=== PATIENT | male | born 1965 | race Hispanic/Latino ===

== ENCOUNTER 2022-02-04 06:56 | Emergency (ER) | payer SELFPAY ==
--- NOTE | 2022-02-04 07:25 | Emergency Department Report ---
ED Male HPI - General Stated complaint: URINARY CATHETER PROBLEMS Time Seen by Provider: 02/04/22 07:18 Source: patient Mode of arrival: Ambulatory Limitations: No Limitations - History of Present Illness Initial comments: 56-year-old male with a past medical history of diabetes (not currently on medication) and chronic urine retention and Pitt catheter dependence presents to the hospital complaining of no drainage from Pitt catheter x24 hours. Patient has had a catheter placed x1 year since he had a ruptured hernia and "blood infection that affected his kidneys). Catheter was last changed 1 month ago. Patient complains of suprapubic abdominal pain progressively worsening for the last several hours and severe at this time. Denies fever, nausea, or vomiting. - Related Data Previous Rx's Medication Instructions Recorded Last Taken Type cefUROXime [Ceftin] 500 mg PO BID 7 Days tablet 02/04/22 Unknown Rx Allergies Allergy/AdvReac Type Severity Reaction Status Date / Time No Known Allergies Allergy Unverified 02/04/22 07:35 ED Review of Systems ROS: Stated complaint: URINARY CATHETER PROBLEMS Other details as noted in HPI Comment: All other systems reviewed and negative ED Past Medical Hx - Medications Home Medications: Home Medications Medication Instructions Recorded Confirmed Last Taken Type cefUROXime [Ceftin] 500 mg PO BID 7 Days tablet 02/04/22 Unknown Rx ED Physical Exam - Other Other exam information: General: No acute distress Head: Atraumatic Eyes: normal appearance ENT: Moist mucous membranes Neck: Normal appearance, no midline tenderness Chest: Clear to auscultation bilaterally CV: Regular rate and rhythm Abdomen: Soft, normal bowel sounds, midline vertical abdominal surgical scar, suprapubic tenderness and distention. : Circumcised male no penile lesion Back: Normal inspection Extremity: Normal inspection, full range of motion Neuro: Alert O x 3, no facial asymmetry, speech clear, no gross motor sensory deficit Psych: Appropriate behavior Skin: No rash ED Course Vital Signs 02/04/22 02/04/22 07:28 07:36 Temperature 98.6 F Pulse Rate 90 Respiratory 18 18 Rate Blood Pressure 173/107 O2 Sat by Pulse 95 98 Oximetry ED Medical Decision Making - Lab Data Result diagrams: 02/04/22 07:24 02/04/22 07:24 Lab Results 02/04/22 02/04/22 02/04/22 Range/Units 07:24 07:24 07:28 WBC 8.7 (4.5-11.0) K/mm3 RBC 4.28 (3.65-5.03) M/mm3 Hgb 13.8 (11.8-15.2) gm/dl Hct 41.7 (35.5-45.6) % MCV 98 H (84-94) fl MCH 32 (28-32) pg MCHC 33 (32-34) % RDW 13.7 (13.2-15.2) % Plt Count 268 (140-440) K/mm3 Lymph % (Auto) 14.1 (13.4-35.0) % Stevens % (Auto) 7.4 H (0.0-7.3) % Eos % (Auto) 3.1 (0.0-4.3) % Baso % (Auto) 0.8 (0.0-1.8) % Lymph # (Auto) 1.2 (1.2-5.4) K/mm3 Stevens # (Auto) 0.6 (0.0-0.8) K/mm3 Eos # (Auto) 0.3 (0.0-0.4) K/mm3 Baso # (Auto) 0.1 (0.0-0.1) K/mm3 Seg Neutrophils % 74.6 H (40.0-70.0) % Seg Neutrophils # 6.5 (1.8-7.7) K/mm3 Sodium 141 (137-145) mmol/L Potassium 3.5 L (3.6-5.0) mmol/L Chloride 104.6 (98-107) mmol/L Carbon Dioxide 25 (22-30) mmol/L Anion Gap 15 mmol/L BUN 16 (9-20) mg/dL Creatinine 1.5 H (0.8-1.3) mg/dL Estimated GFR 48 ml/min BUN/Creatinine Ratio 11 % Glucose 109 H (75-100) mg/dL Calcium 9.0 (8.4-10.2) mg/dL Urine Color Straw (Yellow) Urine Turbidity Clear (Clear) Urine pH 8.0 H (5.0-7.0) Ur Specific [place] 1.015 (1.003-1.030) Urine Protein 30 mg/dl (Negative) mg/dL Urine Glucose (UA) Negative (Negative) mg/dL Urine Ketones Negative (Negative) mg/dL Urine Blood 1+ (Negative) Urine Nitrite Negative (Negative) Ur Reducing Substances Not Reportable Urine Bilirubin Negative (Negative) Urine Ictotest Not Reportable Urine Urobilinogen 0.0 (<2.0) mg/dL Ur Leukocyte Esterase 1+ (Negative) Urine WBC (Auto) 37.0 H (0.0-6.0) /HPF Urine RBC (Auto) 7.0 (0.0-6.0) /HPF - Medical Decision Making 56-year-old male with chronic urinary retention and Pitt catheter dependence presents to the hospital with acute catheter obstruction. Catheter was placed by RN with successful relief of obstruction and pain. Greater than 1500 mL urine output after Pitt catheter replacement. UA reveals UTI. Mild renal sufficiency noted. Patient provided a dose of oral antibiotic and will be discharged on same and urology follow-up Critical care attestation.: If time is entered above; I have spent that time in minutes in the direct care of this critically ill patient, excluding procedure time. ED Disposition Clinical Impression: Obstructed Pitt catheter, Acute on chronic urinary retention, UTI (urinary tract infection), Renal insufficiency Disposition: 01 HOME / SELF CARE / HOMELESS Is pt being admited?: No Does the pt Need Aspirin: No Condition: Stable Instructions: Urinary Tract Infection, Adult, [id number], Indwelling Urinary Catheter Care, Adult, [id number] Additional Instructions: Follow-up with your urologist of the urologist provided. You have very mild kidney dysfunction as indicated by your creatinine level. Follow-up with nephrology for further evaluation. Take the antibiotic for UTI as prescribed. Return if symptoms worsen as indicated by your discharge instructions Prescriptions: cefUROXime [Ceftin] 500 mg PO BID 7 Days tablet Referrals: REGINALDO CROWE MD [Staff Physician] - 3-5 Days (Urologist) KIMBER AGUILAR MD [Staff Physician] - 3-5 Days (Tool Room Supervisor/kidney specialist)
[2022-02-04 07:40] LABS: Basophils # (Auto) 0.1 K/mm3 (0.0-0.1); Basophils % (Auto) 0.8 % (0.0-1.8); Eosinophils # (Auto) 0.3 K/mm3 (0.0-0.4); Eosinophils % (Auto) 3.1 % (0.0-4.3); Hematocrit 41.7 % (35.5-45.6); Hemoglobin 13.8 gm/dl (11.8-15.2); Lymphocytes # (Auto) 1.2 K/mm3 (1.2-5.4); Lymphocytes % (Auto) 14.1 % (13.4-35.0); Mean Corpuscular HGB Conc 33 % (32-34); Mean Corpuscular Volume 98 fl (84-94); Monocytes # (Auto) 0.6 K/mm3 (0.0-0.8); Monocytes % (Auto) 7.4 % (0.0-7.3); Platelet Count 268 K/mm3 (140-440); Red Blood Count 4.28 M/mm3 (3.65-5.03); Red Cell Distribution Width 13.7 % (13.2-15.2)
[2022-02-04 08:29] LABS: Bilirubin,Urine Negative (Negative); Blood,Urine 1+ (Negative); Color,Urine Straw (Yellow)
[2022-02-04 10:12] VITALS: BP 150/103
== END 2022-02-04 18:02 | disposition home or self-care (01) ==
LOC: ED 06:56
DX: T83.091A Other mechanical complication of indwelling urethral catheter, initial encounter (principal); R33.9 Retention of urine, unspecified; N39.0 Urinary tract infection, site not specified; N18.9 Chronic kidney disease, unspecified
CPT/HCPCS: 36415; 51702; 80048; 81001; 85025; 87086; 99283